=== PATIENT | female | born 2000 | race Hispanic/Latino ===

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

== ENCOUNTER 2018-05-28 13:33 | Emergency (ER) | payer BC, SELFPAY ==
[2018-05-28 14:14] LABS: #Basophils 0.1 thou/uL (0.0-0.2); #Lymphocytes 1.9 thou/uL (1.20-3.40); #Monocytes 0.6 thou/uL (0.11-0.59); #Neutrophils 4.7 thou/uL (1.40-6.50); %Basophils 0.8 % (0.0-1.0); %Eosinophils 0.6 % (0.0-10.0); %Lymphocytes 25.6 % (28.0-48.0); %Monocytes 8.3 % (0.0-4.0); %Neutrophils 64.7 % (31.0-61.0); Hemoglobin 9.4 g/dL (12.0-16.0); Mean Corpuscular HGB CONC 30.7 g/dL (32.0-36.0); Mean Corpuscular Hemoglobin 19.3 pg (25.0-35.0); Mean Corpuscular Volume 62.8 fL (78.0-98.0); Mean Platelet Volume 9.3 fL (7.4-10.4); Platelet Count 385 thou/uL (130-400); RBC Distribution Width 16.3 % (11.5-14.5); Red Blood Cell (RBC) Count 4.89 mill/uL (4.00-5.20); White Blood Cell (WBC) Count 7.3 thou/uL (4.8-10.8)
[2018-05-28 14:21] LABS: Bilirubin Negative (Negative); Blood, Urine Negative (Negative); Clarity CLOUDY (Clear); Glucose, Urine (Dipstick) Negative (Negative); Leukocyte Small (Negative); Nitrite Negative (Negative); Protein, Urine (Dipstick) Negative (Neg-Trace); pH, Urine 7.5 (5.0-9.0)
[2018-05-28 14:24] LABS: Bacteria/HPF 1+ HPF (None Seen); Hyaline Casts/LPF 0-3 HYALINE CAST LPF (0-3 Hyaline); Pathc Cast-AUWi Flag 0.14 (0-2.49); RBC/HPF 0-3 HPF (0-3); Specific Gravity, Urine 1.004 (1.002-1.036)
[2018-05-28 14:25] LABS: Pregnancy Test - Urine (BHCG) POSITIVE (Negative); Pregu Control Background? CLEAR/WHITE (CLR/WHITE); Pregu Control Bar Appear? YES (CONTROL BAR); Specific Gravity 1.004 (1.002-1.036)
[2018-05-28 14:37] LABS: Anisocytosis SLIGHT = 6-15 cells (100X) (0-5/hpf); Elliptocytes SLIGHT = 2-5 cells (100X) (0-1/hpf); Hypochromia SLIGHT = 6-15 cells (100X) (0-5/hpf); MDiff Complete? YES; Microcytosis SLIGHT = 6-15 cells (100X) (0-5/hpf); Ovalocytes SLIGHT = 2-5 cells (100X) (0-1/hpf); PLT Morphology Comment Appears Adequate; Polychromasia SLIGHT = 2-3 cells (100X) (0-2/hpf); Reflex for Review?? YES; Tear Drops SLIGHT = 2-5 cells (100X) (0-1/hpf)
--- NOTE | 2018-05-28 20:26 | ULT ---
PELVIC ULTRASOUND: HISTORY: Cramping. The patient is . COMPARISON: None. TECHNIQUE: Transabdominal and endovaginal imaging of the pelvis is performed. The ovaries are interrogated with wells-scale, color-flow, and Doppler imaging with spectral wave-form analysis. FINDINGS: The uterus is identified without a myometrial masses. The uterus measures 4.9 x 6.6 x 7.6 cm. Withi n the endometrium, there is a gestational sac and a possible pole. This presumed pole camacho s a crown-rump length of 0.21 cm, corresponding to a gestational age of 5 weeks 5 days. FHT are not appreciated. A yolk sac is suggested. A possible small subchorionic hemorrhage is noted. There is an anechoic focus adjacent to the gestational sac. Significance is uncertain but small subchroionic hemorrhage is suspected. The left ovary has a normal echotexture, measuring 1.5 x 3.1 x 1.6 cm. The right ovary has a normal echotexture, measuring 1.6 x 2.6 x 4.4 cm. There is no free fluid. On ovarian Doppler, there is vascular flow to the right and left ovaries. IMPRESSION: 1. Possible single intrauterine gestation. Gestational age by crown-rump length is 5 weeks 5 days. heart tones are not appreciated, likely due to early gestational age. A follow-up ultrasound and serial beta hCGs are recommended. 2. Nonspecific anechoic focus adjacent to the gestational sac, possible subchorionic hemorrhage. POS: PPP
== END 2018-05-28 19:54 | disposition home or self-care (01) ==
LOC: ERS 13:33
DX: O99.89 Other specified diseases and conditions complicating pregnancy, childbirth and the puerperium (principal); R10.9 Unspecified abdominal pain; Z3A.01 Less than 8 weeks gestation of pregnancy
CPT/HCPCS: 36415; 76856; 81003; 81015; 81025; 84702; 85025; 85060

== ENCOUNTER 2019-05-24 01:55 | Emergency (ER) | payer SELFPAY ==
[2019-05-24] MEDS ORDERED: Ondansetron ODT 4 MG TAB ONE (02:06)
[2019-05-24 02:26] LABS: Bacteria/HPF None Seen HPF (None Seen); Bilirubin Negative (Negative); Blood, Urine Negative (Negative); Clarity Clear (Clear); Glucose, Urine (Dipstick) Normal (Negative); Leukocyte 75 Leu/uL (Negative); Nitrite Negative (Negative); Pregnancy Test - Urine (BHCG) Negative (Negative); Pregu Control Background? CLEAR/WHITE (CLR/WHITE); Pregu Control Bar Appear? YES (CONTROL BAR); Protein, Urine (Dipstick) Negative (Neg-Trace); RBC/HPF 0-3 HPF (0-3); Specific Gravity 1.025 (1.002-1.036); Squamous Epithelial 0-3 HPF (0-3); Urobilinogen Normal mg/dL (Less than 2)
== END 2019-05-24 03:05 | disposition home or self-care (01) ==
LOC: ERS 01:55
DX: R11.0 Nausea (principal); R19.7 Diarrhea, unspecified
CPT/HCPCS: 81003; 81015; 81025; 99284; Q0162

== ENCOUNTER 2020-03-08 12:46 | Emergency (ER) | payer OTHER, SELFPAY ==
[2020-03-09 12:21] LABS: SARS-CoV-2 MS2 Positive; SARS-CoV-2 N Gene Negative; SARS-CoV-2 S Gene Negative; SARS-CoV-2 orf1ab Negative
== END 2020-03-08 13:06 | disposition home or self-care (01) ==
LOC: ERS 12:46
DX: Z20.828 Contact with and (suspected) exposure to other viral communicable diseases (principal); F17.210 Nicotine dependence, cigarettes, uncomplicated; F41.9 Anxiety disorder, unspecified
CPT/HCPCS: 87635; 99283; U0003

== ENCOUNTER 2020-07-22 14:46 | Emergency (ER) | payer OTHER, SELFPAY | END 2020-07-22 15:23 | disposition left against medical advice (07) | LOC: ERS 14:46 | DX: Z53.21 Procedure and treatment not carried out due to patient leaving prior to being seen by health care provider (principal) ==

== ENCOUNTER 2020-07-22 18:13 | Emergency (ER) | payer SELFPAY ==
[2020-07-23 09:37] LABS: SARS-CoV-2 MS2 Positive; SARS-CoV-2 N Gene Negative; SARS-CoV-2 S Gene Negative; SARS-CoV-2 by NAA Not Detected (NotDetected); SARS-CoV-2 orf1ab Negative
== END 2020-07-22 19:11 | disposition home or self-care (01) ==
LOC: ERS 18:13
DX: R53.83 Other fatigue (principal); Z20.828 Contact with and (suspected) exposure to other viral communicable diseases
CPT/HCPCS: 87635; 99283; U0003

== ENCOUNTER 2020-11-23 18:51 | Emergency (ER) | payer OTHER, SELFPAY ==
[2020-11-24 04:20] LABS: SARS-CoV-2 PCR by NAA Not Detected (NotDetected)
== END 2020-11-23 19:45 | disposition home or self-care (01) ==
LOC: ERS 18:51
DX: R05 Cough (principal); R50.9 Fever, unspecified; M79.10 Myalgia, unspecified site; Z20.822 Contact with and (suspected) exposure to COVID-19
CPT/HCPCS: 87635; 99283; U0003; U0005

== ENCOUNTER 2021-12-08 08:56 | Emergency (ER) | payer MEDICAID, OTHER ==
[2021-12-08] MEDS ORDERED: Ondansetron ODT 4 MG TAB ONE (10:00)
[2021-12-08 10:12] LABS: #Basophils 0.1 thou/uL (0.0-0.2); #Lymphocytes 1.4 thou/uL (1.20-3.40); #Monocytes 0.4 thou/uL (0.11-0.59); #Neutrophils 7.4 thou/uL (1.40-6.50); %Basophils 0.6 % (0.0-1.0); %Eosinophils 0.4 % (0.0-10.0); %Lymphocytes 14.7 % (21.0-51.0); %Monocytes 4.2 % (0.0-10.0); %Neutrophils 80.1 % (42.0-75.0); Hemoglobin 15.4 g/dL (12.0-16.0); Mean Corpuscular Hemoglobin 29.9 pg (27.0-31.0); Mean Corpuscular Volume 88.2 fL (78.0-98.0); Mean Platelet Volume 6.7 fL (7.4-10.4); Platelet Count 294 thou/uL (130-400); Red Blood Cell (RBC) Count 5.13 mill/uL (4.20-5.40); White Blood Cell (WBC) Count 9.2 thou/uL (4.8-10.8)
[2021-12-08] MEDS ORDERED: Metoclopramide HCl 10 MG/2 ML VIAL ONE (10:26)
[2021-12-08 10:30] LABS: ALT (SGPT) 18 U/L (8-55); AST (SGOT) 16 U/L (5-34); Albumin 4.4 g/dL (3.5-5.0); Alkaline Phosphatase 82 U/L (40-110); Anion Gap 15 mmol/L (10-20); BUN (Urea Nitrogen) 7 mg/dL (7.0-18.7); Bilirubin, Total 0.4 mg/dL (0.2-1.2); Calc. Creatinine Clearance 0 mL/min (70-130); Calcium 9.5 mg/dL (7.8-10.44); Carbon Dioxide 22 mmol/L (22-29); Chloride 103 mmol/L (98-107); Globulin 2.9 g/dL (2.4-3.5); Glucose 158 mg/dL (70-105); Potassium 3.6 mmol/L (3.5-5.1); Protein, Total 7.3 g/dL (6.0-8.3); Sodium 136 mmol/L (136-145)
[2021-12-08 11:14] LABS: Bacteria/HPF None Seen HPF (None Seen); Bilirubin Negative (Negative); Blood, Urine Negative (Negative); Clarity Turbid (Clear); Glucose, Urine (Dipstick) Normal (Negative); Ketone, Urine 100 mg/dL (Negative); Leukocyte 75 Leu/uL (Negative); Nitrite Negative (Negative); Protein, Urine (Dipstick) 30 mg/dL (Neg-Trace); RBC/HPF 0-3 HPF (0-3); Specific Gravity, Urine 1.038 (1.002-1.036)
== END 2021-12-08 13:07 | disposition home or self-care (01) ==
LOC: ERS 08:56
DX: O21.0 Mild hyperemesis gravidarum (principal); Z3A.01 Less than 8 weeks gestation of pregnancy
CPT/HCPCS: 36415; 80053; 81003; 81015; 85025; 96365; 96366; J2765; Q0162

== ENCOUNTER 2021-12-30 11:09 | Emergency (ER) | payer MEDICAID, OTHER ==
[2021-12-30 12:50] LABS: ALT (SGPT) 17 U/L (8-55); AST (SGOT) 13 U/L (5-34); Albumin 4.2 g/dL (3.5-5.0); Alkaline Phosphatase 62 U/L (40-110); Anion Gap 16 mmol/L (10-20); BUN (Urea Nitrogen) 5 mg/dL (7.0-18.7); Bilirubin, Total 0.3 mg/dL (0.2-1.2); Calc. Creatinine Clearance 0 mL/min (70-130); Calcium 9.6 mg/dL (7.8-10.44); Carbon Dioxide 19 mmol/L (22-29); Chloride 103 mmol/L (98-107); Globulin 2.9 g/dL (2.4-3.5); Glucose 82 mg/dL (70-105); Protein, Total 7.1 g/dL (6.0-8.3); Sodium 134 mmol/L (136-145)
[2021-12-30] MEDS ORDERED: Ondansetron PF 4 MG/2 ML Vial ONE (13:45)
[2021-12-30 15:09] LABS: Bilirubin Negative (Negative); Blood, Urine 1+ (Negative); Glucose, Urine (Dipstick) Normal (Negative); Ketone, Urine 40 mg/dL (Negative); Leukocyte 500 Leu/uL (Negative); Nitrite Negative (Negative); Protein, Urine (Dipstick) 30 mg/dL (Neg-Trace); RBC/HPF 21-50 HPF (0-3); WBC/HPF Greater than 50 HPF (0-3)
[2021-12-30 15:14] LABS: Bacteria/HPF 1+ HPF (None Seen); Clarity Cloudy (Clear)
[2021-12-30] MEDS ORDERED: Morphine 2 MG/ML VIAL ONE (15:24)
[2021-12-31 16:22] LABS: Chlamydia by PCR Not Detected (NotDetected); GC by PCR Not Detected (NotDetected)
== END 2021-12-30 16:35 | disposition short-term general hospital (02) ==
LOC: ERS 11:09
DX: O00.90 Unspecified ectopic pregnancy without intrauterine pregnancy (principal); Z3A.08 8 weeks gestation of pregnancy; Z87.891 Personal history of nicotine dependence
CPT/HCPCS: 36415; 76856; 80053; 81003; 81015; 84702; 87086; 87480; 87491; 87510; 87591; 87660; 96374; 96375; J2270; J2405

== ENCOUNTER 2022-07-30 12:18 | Emergency (ER) | payer MEDICAID | END 2022-07-30 14:02 | disposition home or self-care (01) | LOC: ERS 12:18 | DX: J32.8 Other chronic sinusitis (principal) | CPT/HCPCS: 99282 ==

== ENCOUNTER 2022-09-04 16:28 | Emergency (ER) | payer MEDICAID ==
[2022-09-04] MEDS ORDERED: Ondansetron PF 4 MG/2 ML Vial ONE (16:40)
[2022-09-04 16:51] LABS: #Eosinphils 0.1 thou/uL (0.0-0.7); #Lymphocytes 2.9 thou/uL (1.20-3.40); #Monocytes 0.7 thou/uL (0.11-0.59); #Neutrophils 6.5 thou/uL (1.40-6.50); %Basophils 0.5 % (0.0-1.0); %Eosinophils 1.1 % (0.0-10.0); %Lymphocytes 27.8 % (21.0-51.0); %Monocytes 7.2 % (0.0-10.0); %Neutrophils 63.5 % (42.0-75.0); Hemoglobin 14.4 g/dL (12.0-16.0); Mean Corpuscular Hemoglobin 28.6 pg (27.0-31.0); Mean Corpuscular Volume 84.2 fl (78.0-98.0); Platelet Count 320 10x3/uL (130-400); Red Blood Cell (RBC) Count 5.03 mill/uL (4.20-5.40); White Blood Cell (WBC) Count 10.3 10x3/uL (4.8-10.8)
[2022-09-04] MEDS ORDERED: Dicyclomine 20 MG TAB ONE ×2 (16:59→17:01)
[2022-09-04 17:03] LABS: BHCG - Serum POSITIVE (NEGATIVE); Pregs Control Background? CLEAR/WHITE (CLR/WHITE); Pregs Control Bar Appear? YES (CONTROL BAR)
[2022-09-04 17:11] LABS: ALT (SGPT) 23 U/L (8-55); AST (SGOT) 19 U/L (5-34); Albumin 4.4 g/dL (3.5-5.0); Alkaline Phosphatase 85 U/L (40-110); Anion Gap 13 mmol/L (10-20); BUN (Urea Nitrogen) 6 mg/dL (7.0-18.7); Bilirubin, Total 0.4 mg/dL (0.2-1.2); Calc. Creatinine Clearance 0 mL/min (70-130); Calcium 8.9 mg/dL (7.8-10.44); Carbon Dioxide 21 mmol/L (22-29); Chloride 107 mmol/L (98-107); Estimated GFR 125; Globulin 2.8 g/dL (2.4-3.5); Glucose 90 mg/dL (70-105); Lipase 36 U/L (8-78); Potassium 3.3 mmol/L (3.5-5.1); Protein, Total 7.2 g/dL (6.0-8.3); Sodium 138 mmol/L (136-145)
[2022-09-04 17:14] LABS: Bilirubin Negative (Negative); Blood, Urine Negative (Negative); Clarity Clear (Clear); Glucose, Urine (Dipstick) Normal (Negative); Ketone, Urine Negative (Negative); Leukocyte Negative Leu/uL (Negative); Nitrite Negative (Negative); Protein, Urine (Dipstick) 10 mg/dL (Neg-Trace); Specific Gravity, Urine 1.031 (1.002-1.036); Urobilinogen Normal mg/dL (Less than 2); pH, Urine 6.5 (5.0-9.0)
== END 2022-09-04 18:58 | disposition home or self-care (01) ==
LOC: ERS 16:28
DX: O21.9 Vomiting of pregnancy, unspecified (principal); Z3A.01 Less than 8 weeks gestation of pregnancy
CPT/HCPCS: 36415; 76856; 80053; 81003; 83690; 84702; 84703; 85025; 96361; 96374; J2405

== ENCOUNTER 2022-12-21 21:25 | Emergency (ER) | payer MEDICAID, OTHER ==
[2022-12-21 22:34] LABS: #Basophils 0.1 thou/uL (0.0-0.2); #Eosinphils 0.1 thou/uL (0.0-0.7); #Monocytes 0.9 thou/uL (0.11-0.59); #Neutrophils 8.4 thou/uL (1.40-6.50); %Basophils 0.7 % (0.0-1.0); %Eosinophils 0.9 % (0.0-10.0); %Monocytes 7.4 % (0.0-10.0); Hemoglobin 11.5 g/dL (12.0-16.0); Mean Corpuscular HGB CONC 34.2 g/dL (32.0-36.0); Mean Corpuscular Hemoglobin 28.9 pg (27.0-31.0); Mean Corpuscular Volume 84.6 fl (78.0-98.0); Mean Platelet Volume 7.1 fL (7.4-10.4); Platelet Count 350 10x3/uL (130-400); RBC Distribution Width 11.3 % (11.5-14.5); Red Blood Cell (RBC) Count 3.98 mill/uL (4.20-5.40); White Blood Cell (WBC) Count 12.5 10x3/uL (4.8-10.8)
[2022-12-21 22:40] LABS: ALT (SGPT) 9 U/L (8-55); AST (SGOT) 12 U/L (5-34); Albumin 3.6 g/dL (3.5-5.0); Alkaline Phosphatase 84 U/L (40-110); Anion Gap 12 mmol/L (10-20); BUN (Urea Nitrogen) 4 mg/dL (7.0-18.7); Bilirubin, Total 0.2 mg/dL (0.2-1.2); Calc. Creatinine Clearance 0 mL/min (70-130); Calcium 9.3 mg/dL (7.8-10.44); Carbon Dioxide 19 mmol/L (22-29); Chloride 107 mmol/L (98-107); Estimated GFR 127; Globulin 3.1 g/dL (2.4-3.5); Glucose 102 mg/dL (70-105); Lipase 16 U/L (8-78); Potassium 3.4 mmol/L (3.5-5.1); Protein, Total 6.7 g/dL (6.0-8.3); Sodium 135 mmol/L (136-145)
[2022-12-21] MEDS ORDERED: Acetaminophen 500 MG TAB ONE (23:42)
[2022-12-21 23:59] LABS: Bacteria/HPF None Seen HPF (None Seen); Bilirubin Negative (Negative); Blood, Urine Negative (Negative); Clarity Clear (Clear); Glucose, Urine (Dipstick) Normal (Negative); Ketone, Urine Trace mg/dL (Negative); Leukocyte 75 Leu/uL (Negative); Nitrite Negative (Negative); Protein, Urine (Dipstick) 20 mg/dL (Neg-Trace); RBC/HPF 0-3 HPF (0-3); Squamous Epithelial 0-3 HPF (0-3); Urobilinogen Normal mg/dL (Less than 2); pH, Urine 6.5 (5.0-9.0)
== END 2022-12-22 02:28 | disposition short-term general hospital (02) ==
LOC: ERS 21:25
DX: R10.30 Lower abdominal pain, unspecified (principal)
CPT/HCPCS: 36415; 76705; 80053; 81003; 81015; 83690; 85025; 87480; 87510; 87660; 96360

== ENCOUNTER 2023-02-28 13:16 | Emergency (ER) | payer OTHER ==
[2023-02-28 13:43] LABS: #Basophils 0.1 thou/uL (0.0-0.2); #Eosinphils 0.1 thou/uL (0.0-0.7); #Monocytes 0.8 thou/uL (0.11-0.59); #Neutrophils 8.4 thou/uL (1.40-6.50); %Basophils 0.5 % (0.0-1.0); %Eosinophils 0.6 % (0.0-10.0); %Lymphocytes 17.8 % (21.0-51.0); %Monocytes 7.1 % (0.0-10.0); %Neutrophils 71.8 % (42.0-75.0); Hemoglobin 10.2 g/dL (12.0-16.0); Mean Corpuscular HGB CONC 31.9 g/dL (32.0-36.0); Mean Corpuscular Hemoglobin 23.9 pg (27.0-31.0); Mean Corpuscular Volume 75.1 fl (78.0-98.0); Mean Platelet Volume 9.5 fL (7.4-10.4); Platelet Count 319 10x3/uL (130-400); RBC Distribution Width 13.3 % (11.5-14.5); Red Blood Cell (RBC) Count 4.26 mill/uL (4.20-5.40); White Blood Cell (WBC) Count 11.8 10x3/uL (4.8-10.8)
[2023-02-28 13:59] LABS: Prothrombin Time 13.6 sec (12.0-14.7)
[2023-02-28 14:00] LABS: PTT 28.6 sec (22.9-36.1)
[2023-02-28 14:09] LABS: ALT (SGPT) 7 U/L (8-55); AST (SGOT) 13 U/L (5-34); Albumin 3.6 g/dL (3.5-5.0); Alkaline Phosphatase 193 U/L (40-110); Anion Gap 15 mmol/L (10-20); BUN (Urea Nitrogen) Less than 4 mg/dL (7.0-18.7); Bilirubin, Total 0.3 mg/dL (0.2-1.2); Calc. Creatinine Clearance 0 mL/min (70-130); Carbon Dioxide 18 mmol/L (22-29); Chloride 106 mmol/L (98-107); Estimated GFR 125; Globulin 3.5 g/dL (2.4-3.5); Glucose 80 mg/dL (70-105); Potassium 3.6 mmol/L (3.5-5.1); Protein, Total 7.1 g/dL (6.0-8.3); Sodium 135 mmol/L (136-145)
== END 2023-02-28 14:12 | disposition short-term general hospital (02) ==
LOC: ERS 13:16
DX: O60.03 Preterm labor without delivery, third trimester (principal); Z3A.32 32 weeks gestation of pregnancy
CPT/HCPCS: 80053; 85025; 85610; 85730; 86850; 86900; 86901; 99284

== ENCOUNTER 2023-04-14 19:06 | Emergency (ER) | payer OTHER ==
[~2023-04-14 19:06] MED LIST: Iopamidol-370 76% 500 ML MDV (1 ML CHARGE) ONE
[2023-04-14] MEDS ORDERED: Acetaminophen 500 MG TAB ONE (19:48)
[2023-04-14] MEDS ORDERED: Mag-Al 1200 mg/1200 mg/30 ML UDCUP ONE (19:48)
[2023-04-14 19:59] LABS: #Eosinphils 0.1 thou/uL (0.0-0.7); #Monocytes 0.6 thou/uL (0.11-0.59); #Neutrophils 7.5 thou/uL (1.40-6.50); %Basophils 0.2 % (0.0-1.0); %Eosinophils 0.9 % (0.0-10.0); %Lymphocytes 16.6 % (21.0-51.0); %Monocytes 5.8 % (0.0-10.0); %Neutrophils 75.1 % (42.0-75.0); Hemoglobin 8.7 g/dL (12.0-16.0); Mean Corpuscular Hemoglobin 20.8 pg (27.0-31.0); Mean Corpuscular Volume 69.2 fl (78.0-98.0); Mean Platelet Volume 9.2 fL (7.4-10.4); Platelet Count 304 10x3/uL (130-400); RBC Distribution Width 15.6 % (11.5-14.5); Red Blood Cell (RBC) Count 4.19 mill/uL (4.20-5.40); White Blood Cell (WBC) Count 9.9 10x3/uL (4.8-10.8)
[2023-04-14 20:21] LABS: Anisocytosis SLIGHT = 6-15 cells HPF (0-5); Burr Cells MODERATE= 6-15 cells HPF (0-1); CellaVision Operator ID lab.sh2; Microcytosis SLIGHT = 6-15 cells HPF (0-5); Ovalocytes SLIGHT = 2-5 cells HPF (0-1); Platelet Adequacy Comment Platelets Normal; Poikilocytosis SLIGHT = 6-15 cells HPF (0-5); Polychromasia MODERATE = 3-4 cells HPF (0-2)
[2023-04-14 20:22] LABS: ALT (SGPT) Less than 7 U/L (8-55); AST (SGOT) 13 U/L (5-34); Albumin 3.3 g/dL (3.5-5.0); Alkaline Phosphatase 336 U/L (40-110); Anion Gap 13 mmol/L (10-20); BUN (Urea Nitrogen) 4 mg/dL (7.0-18.7); Bilirubin, Total 0.4 mg/dL (0.2-1.2); Calc. Creatinine Clearance 0 mL/min (70-130); Calcium 8.7 mg/dL (7.8-10.44); Carbon Dioxide 18 mmol/L (22-29); Chloride 107 mmol/L (98-107); Estimated GFR 110; Globulin 3.3 g/dL (2.4-3.5); Glucose 166 mg/dL (70-105); Protein, Total 6.6 g/dL (6.0-8.3); Sodium 135 mmol/L (136-145)
[2023-04-14 20:27] LABS: Troponin I Less than 0.010 ng/mL (< 0.028)
[2023-04-14] MEDS ORDERED: Potassium Chloride 20 MEQ TAB ONE (22:54)
== END 2023-04-14 23:49 | disposition home or self-care (01) ==
LOC: ERS 19:06
DX: R07.2 Precordial pain (principal)
CPT/HCPCS: 71045; 71275; 80053; 83880; 84484; 85025; 85379; 93005; Q9967